=== PATIENT | male | born 1965 | race Caucasian/White ===

== ENCOUNTER 2019-07-01 14:16 | Emergency (ER) | payer OTHER ==
[2019-07-01 14:24] VITALS: TEMP 98.7
[2019-07-01] MEDS ORDERED: IPRATROPIUM 0.5 MG/2.5 ML NEBU INHALATION STA (14:37)
[2019-07-01] MEDS ORDERED: ALBUTEROL NEBULIZED 2.5 MG/3 ML INHALATION STA (14:37)
[2019-07-01] MEDS ORDERED: DEXAMETHASONE SOD PHOSPHATE 10 MG/ML 1 ML VIAL IV STA (14:37)
[2019-07-01 14:51] LABS: Basophils # (A) 0.1 k/uL (0-0.2); Basophils % (A) 0 %; Eosinophils # (A) 0.2 k/uL (0-0.7); Eosinophils % (A) 1 %; HCT 45.5 % (39.0-53.0); HGB 15.6 gm/dL (13.0-17.5); Lymphocytes # (A) 1.2 k/uL (1.0-4.8); Lymphocytes % (A) 7 %; MCH 33.2 pg (25.0-35.0); MCHC 34.4 g/dL (31.0-37.0); MCV 96.5 fL (80.0-100.0); Mean Platelet Volume 6.5; Monocytes # (A) 0.7 k/uL (0-1.0); Monocytes % (A) 4 %; Neutrophils # (A) 14.9 k/uL (1.3-7.7); Neutrophils % (A) 87 %; Platelet Count 221 k/uL (150-450); RBC 4.71 m/uL (4.30-5.90); RDW 14.1 % (11.5-15.5); WBC 17.2 k/uL (3.8-10.6)
[2019-07-01 14:52] LABS: African American GFR (CKD) >90 (>60 ml/min/1.73 sqM); Anion Gap 10 mmol/L; Blood Urea Nitrogen 10 mg/dL (9-20); Calcium 9.1 mg/dL (8.4-10.2); Carbon Dioxide 24 mmol/L (22-30); Chloride 103 mmol/L (98-107); Glucose 113 mg/dL (74-99); Potassium 3.7 mmol/L (3.5-5.1); Sodium 137 mmol/L (137-145)
--- NOTE | 2019-07-01 15:08 | XR ---
EXAMINATION TYPE: XR chest 1V portable DATE OF EXAM: 07/01/2019 COMPARISON: 12/31/2011 HISTORY: Dyspnea and shortness of breath TECHNIQUE: Single frontal view of the chest is obtained. FINDINGS: There is no focal air space opacity, pleural effusion, or pneumothorax seen. Pulmonary hyp erinflation and flattening the diaphragms is seen indicative of underlying COPD. There is new central peribronchial cuffing. The cardiac silhouette size is within normal limits. The osseous structures are intact. IMPRESSION: New central peribronchial cuffing may relate to reactive or infectious airway disease in this patient with underlying COPD. Consider bronchitis. No new focal consolidation to suggest pneumo lius.
--- NOTE | 2019-07-01 15:16 | ED ---
General Adult HPI - General Chief complaint: Shortness of Breath Stated complaint: Sob Time Seen by Provider: 07/01/19 14:30 Source: patient Mode of arrival: ambulatory Limitations: no limitations - History of Present Illness Initial comments: Dictation was produced using [employer] dictation software. please excuse any grammatical, word or spelling errors. Chief Complaint: 54-year-old male with past medical history of COPD presents with shortness of breath since yesterday. History of Present Illness: 54-year-old male past medical history of COPD. Presents today with shortness of breath. Patient states that he's been having URI symptoms for the last 2-3 days. Since last night he's been having worsening shortness of breath. Patient has history of COPD he feels like his COPD is acting up. Denies any lower extremity pain. No lower extremity swelling. No chest pain. Patient denies any constitutional symptoms. The ROS documented in this emergency department record has been reviewed and confirmed by me. Those systems with pertinent positive or negative responses have been documented in the HPI. All other systems are other negative and/or noncontributory. PHYSICAL EXAM: General Impression: Alert and oriented x3, not in acute distress HEENT: Normocephalic atraumatic, extra-ocular movements intact, pupils equal and reactive to light bilaterally, mucous membranes moist. Cardiovascular: Heart regular rate and rhythm, S1&S2 audible, no murmurs, rubs or gallops Chest: diminished lung sounds bilaterally. Abdomen: Bowel sounds present, abdomen soft, non-tender, non-distended, no organomegaly Musculoskeletal: Pulses present and equal in all extremities, no peripheral edema Motor: no focal deficits noted Neurological: CN II-XII grossly intact, no focal motor or sensory deficits noted Skin: Intact with no visualized rashes Psych: Normal affect and mood ED course: 54-year-old male presents with shortness of breath. Arrived shows tachypnea of 28, worse vital signs within acceptable limits. He is mildly hypoxic at 93 on room air. Patient does not rule out home oxygen at home. Chest x-ray obtained showing no focal findings however there is no central bronchial cuffing.Return evaluation obtained. Leukocytosis of 17.2, metabolic panel unremarkable. She reevaluated after breathing treatment and steroid demonstration with improvement of symptoms. Patient feels well to go home. Patient given refill on Symbicort and Ventolin inhaler. Patient must follow up with his primary care physician upon discharge. Patient understandable agreeable to plan. Return parameters discussed. Presentation consistent with COPD exacerbation. She will prescription of antibiotics however strongly felt that patient's symptoms are from a viral cause supposed to bacterial cause. EKG interpretation: Ventricular rate 86, normal sinus rhythm,. Interval 1:30, care is 92, QTC 418. Overall, this EKG is unremarkable - Related Data Home Medications Medication Instructions Recorded Confirmed Albuterol Sulfate [Ventolin HFA] 1 - 2 puff INHALATION RT-Q6H PRN 07/01/19 07/01/19 Fluticasone/Salmeterol 1 puff INHALATION RT-BID 07/01/19 07/01/19 [Fluticasone-Salmeterol 113-14] Previous Rx's Medication Instructions Recorded Albuterol Inhaler [Ventolin Hfa 1 - 2 puff INHALATION RT-Q6H PRN 07/01/19 Inhaler] #1 inhaler Azithromycin [Zithromax Z-pack] 0 mg PO DIRECTED #6 tab 07/01/19 Budesonide-Formot 160-4.5 Mcg 2 puff INHALATION BID #1 inhaler 07/01/19 [Symbicort 160-4.5 Mcg Inhaler] Allergies Allergy/AdvReac Type Severity Reaction Status Date / Time No Known Allergies Allergy Verified 07/01/19 15:16 Review of Systems ROS Statement: Those systems with pertinent positive or pertinent negative responses have been documented in the HPI. ROS Other: All systems not noted in ROS Statement are negative. Past Medical History Past Medical History: COPD History of Any Multi-Drug Resistant Organisms: None Reported Past Surgical History: Orthopedic Surgery Past Psychological History: No Psychological Hx Reported Smoking Status: Current every day smoker Past Alcohol Use History: None Reported General Exam Limitations: no limitations Course Vital Signs 07/01/19 07/01/19 07/01/19 14:21 15:02 15:11 Temperature 98.7 F Pulse Rate 92 84 90 Respiratory 28 H Rate Blood Pressure 132/92 O2 Sat by Pulse 93 L Oximetry 07/01/19 07/01/19 15:12 15:32 Temperature Pulse Rate 90 82 Respiratory Rate Blood Pressure O2 Sat by Pulse Oximetry Medical Decision Making - Lab Data Result diagrams: 07/01/19 14:25 07/01/19 14:25 Lab Results 07/01/19 07/01/19 07/01/19 Range/Units 14:25 14:25 14:25 WBC 17.2 H (3.8-10.6) k/uL RBC 4.71 (4.30-5.90) m/uL Hgb 15.6 (13.0-17.5) gm/dL Hct 45.5 (39.0-53.0) % MCV 96.5 (80.0-100.0) fL MCH 33.2 (25.0-35.0) pg MCHC 34.4 (31.0-37.0) g/dL RDW 14.1 (11.5-15.5) % Plt Count 221 (150-450) k/uL Neutrophils % 87 % Lymphocytes % 7 % Monocytes % 4 % Eosinophils % 1 % Basophils % 0 % Neutrophils # 14.9 H (1.3-7.7) k/uL Lymphocytes # 1.2 (1.0-4.8) k/uL Monocytes # 0.7 (0-1.0) k/uL Eosinophils # 0.2 (0-0.7) k/uL Basophils # 0.1 (0-0.2) k/uL Sodium 137 (137-145) mmol/L Potassium 3.7 (3.5-5.1) mmol/L Chloride 103 (98-107) mmol/L Carbon Dioxide 24 (22-30) mmol/L Anion Gap 10 mmol/L BUN 10 (9-20) mg/dL Creatinine 0.69 (0.66-1.25) mg/dL Est GFR (CKD-EPI)AfAm >90 (>60 ml/min/1.73 sqM) Est GFR (CKD-EPI)NonAf >90 (>60 ml/min/1.73 sqM) Glucose 113 H (74-99) mg/dL Calcium 9.1 (8.4-10.2) mg/dL NT-Pro-B Natriuret Pep 151 pg/mL Disposition Clinical Impression: COPD exacerbation Disposition: HOME SELF-CARE Condition: Good Instructions (If sedation given, give patient instructions): COPD (Chronic Obstructive Pulmonary Disease) (ED) Prescriptions: Budesonide-Formot 160-4.5 Mcg [Symbicort 160-4.5 Mcg Inhaler] 2 puff INHALATION BID #1 inhaler Albuterol Inhaler [Ventolin Hfa Inhaler] 1 - 2 puff INHALATION RT-Q6H PRN #1 inhaler PRN Reason: Dyspnea Azithromycin [Zithromax Z-pack] 0 mg PO DIRECTED #6 tab Is patient prescribed a controlled substance at d/c from ED?: No Referrals: Jose Oates MD [Primary Care Provider] - 1-2 days Time of Disposition: 15:52
[2019-07-01] MEDS ORDERED: AZITHROMYCIN 500 MG TAB PO STA (15:52)
[2019-07-01 16:25] VITALS: RESP 18
[2019-07-01 17:01] VITALS: BP 122/70; PULSE 84
== END 2019-07-01 17:00 | disposition home or self-care (01) ==
LOC: EC 14:16
DX: J44.1 Chronic obstructive pulmonary disease with (acute) exacerbation (principal); D72.829 Elevated white blood cell count, unspecified; F17.200 Nicotine dependence, unspecified, uncomplicated; Z79.51 Long term (current) use of inhaled steroids
CPT/HCPCS: 36415; 94640 ×2; 93005; 83880; 80048; 85025; 71045; 99285; 96374; J1100

== ENCOUNTER 2019-07-16 18:55 | Inpatient (IN) | payer OTHER ==
[2019-07-16] MEDS ORDERED: methylPREDNISolone SOD SUCCI 125 MG/2 ML VIAL IV STA (19:06)
[2019-07-16] MEDS ORDERED: IPRATROPIUM-ALBUTEROL 3 ML NEB INHALATION STA (19:06)
[2019-07-16] MEDS ORDERED: KETOROLAC 30 MG/ML 1 ML VIAL IVP STA (19:06)
[2019-07-16] MEDS ORDERED: SODIUM CHLORIDE 0.9% 1,000 ML IV STA (19:06)
--- NOTE | 2019-07-16 19:07 | ED ---
Chest Pain HPI - General Chief Complaint: Chest Pain Stated Complaint: Chest pain Time Seen by Provider: 07/16/19 19:05 Source: EMS, RN notes reviewed, old records reviewed Mode of arrival: EMS Limitations: no limitations - History of Present Illness Initial Comments: This is a 54-year-old male the ER for evaluation of chest pain left-sided chest pain for a day and a half. Chest pains worse with a deep breath worse with exertion. Worse with palpation no fevers increased history of COPD. Patient here about 2 months to stay for similar croupy type exacerbation. Denies recent travel history sick contacts, patient drives a bus for a living, no fevers or chills, Patient continues to smoke MD Complaint: chest pain -: days(s) Onset: during exertion Pain Location: substernal Consistency: intermittent Improves With: nitroglycerin Worsens With: nothing Treatments Prior to Arrival: none - Related Data Home Medications Medication Instructions Recorded Confirmed Albuterol Sulfate [Ventolin HFA] 1 - 2 puff INHALATION RT-Q6H PRN 07/01/19 07/16/19 Fluticasone Propion/Salmeterol 1 puff INHALATION RT-BID 07/16/19 07/16/19 [Wixela 250-50 Inhub] Allergies Allergy/AdvReac Type Severity Reaction Status Date / Time No Known Allergies Allergy Verified 07/16/19 20:18 Review of Systems ROS Statement: Those systems with pertinent positive or pertinent negative responses have been documented in the HPI. ROS Other: All systems not noted in ROS Statement are negative. EKG Findings - EKG Comments: EKG Findings:: EKG shows sinus rhythm rate of 88, NC 140, QRS 86, QTc 411 Past Medical History Past Medical History: COPD History of Any Multi-Drug Resistant Organisms: None Reported Past Surgical History: Orthopedic Surgery Past Psychological History: No Psychological Hx Reported Smoking Status: Current every day smoker Past Alcohol Use History: None Reported General Exam Limitations: no limitations General appearance: alert, in no apparent distress Head exam: Present: atraumatic, normocephalic, normal inspection Eye exam: Present: normal appearance, PERRL, EOMI. Absent: scleral icterus, conjunctival injection, periorbital swelling ENT exam: Present: normal exam, mucous membranes moist Neck exam: Present: normal inspection. Absent: tenderness, meningismus, lymphadenopathy Respiratory exam: Present: normal lung sounds bilaterally. Absent: respiratory distress, wheezes, rales, rhonchi, stridor Cardiovascular Exam: Present: regular rate, normal rhythm, normal heart sounds. Absent: systolic murmur, diastolic murmur, rubs, gallop, clicks GI/Abdominal exam: Present: soft, normal bowel sounds. Absent: distended, tenderness, guarding, rebound, rigid Extremities exam: Present: normal inspection, full ROM, normal capillary refill. Absent: tenderness, pedal edema, joint swelling, calf tenderness Back exam: Present: normal inspection Neurological exam: Present: alert, oriented X3, CN II-XII intact Psychiatric exam: Present: normal affect, normal mood Skin exam: Present: warm, dry, intact, normal color. Absent: rash Course Vital Signs 07/16/19 07/16/19 07/16/19 18:57 19:10 19:25 Temperature 97.9 F Pulse Rate 95 94 85 Respiratory 16 17 20 Rate Blood Pressure 99/71 103/72 O2 Sat by Pulse 94 L 94 L Oximetry 07/16/19 07/16/19 07/16/19 19:41 19:56 21:30 Temperature 98.6 F Pulse Rate 79 85 78 Respiratory 18 20 18 Rate Blood Pressure 99/70 113/77 O2 Sat by Pulse 94 L 94 L Oximetry - Reevaluation(s) Reevaluation #1: 07/16/19 21:39 Medical records reviewed Reevaluation #2: 07/16/19 21:39 Not currently feeling comfortable with discharge secondary to shortness of breath and the pain that he has rating to deep breath - Consultations Consultation #1: Spoke with mai Johnson for admission Chest Pain MDM - MDM 54 male the ER for evaluation patient resents today for evaluation regarding shortness of breath with chest pain. Patient has positive pneumonia left upper and left lower lobe. We'll admit for IV antibiotics and continued evaluation. Disposition Clinical Impression: COPD exacerbation, Community acquired bacterial pneumonia Disposition: ADMITTED IP TO THIS HOSP Condition: Fair Is patient prescribed a controlled substance at d/c from ED?: No Referrals: Jose Oates MD [Primary Care Provider] - 1-2 days
[2019-07-16 19:20] LABS: Basophils # (A) 0.1 k/uL (0-0.2); Basophils % (A) 1 %; Eosinophils # (A) 0.3 k/uL (0-0.7); Eosinophils % (A) 2 %; HCT 46.8 % (39.0-53.0); HGB 15.5 gm/dL (13.0-17.5); Lymphocytes # (A) 2.4 k/uL (1.0-4.8); Lymphocytes % (A) 15 %; MCH 31.9 pg (25.0-35.0); MCV 96.7 fL (80.0-100.0); Mean Platelet Volume 7.1; Monocytes # (A) 0.7 k/uL (0-1.0); Monocytes % (A) 4 %; Neutrophils # (A) 11.8 k/uL (1.3-7.7); Neutrophils % (A) 76 %; Platelet Count 320 k/uL (150-450); RBC 4.84 m/uL (4.30-5.90); RDW 13.7 % (11.5-15.5); WBC 15.6 k/uL (3.8-10.6)
[2019-07-16 19:30] LABS: ALT 33 U/L (21-72); AST 27 U/L (17-59); African American GFR (CKD) >90 (>60 ml/min/1.73 sqM); Albumin 4.4 g/dL (3.5-5.0); Alkaline Phosphatase 98 U/L (38-126); Anion Gap 10 mmol/L; Blood Urea Nitrogen 11 mg/dL (9-20); Calcium 9.7 mg/dL (8.4-10.2); Carbon Dioxide 24 mmol/L (22-30); Chloride 103 mmol/L (98-107); Glucose 95 mg/dL (74-99); Potassium 4.2 mmol/L (3.5-5.1); Sodium 137 mmol/L (137-145); Total Bilirubin 0.7 mg/dL (0.2-1.3); Total Protein 7.9 g/dL (6.3-8.2)
[2019-07-16 19:33] LABS: INR 0.9 (<1.2); Prothrombin Time 9.8 sec (9.0-12.0)
--- NOTE | 2019-07-16 19:43 | XR ---
EXAMINATION TYPE: XR chest 2V DATE OF EXAM: 07/16/2019 COMPARISON: 07/01/2019 HISTORY: Chest pain TECHNIQUE: Frontal and lateral views of the chest are obtained. FINDINGS: There is some coarse infiltrate in the left upper lobe. Right lung is fairly clear. Heart size is normal. There is no heart failure. There is pulmonary hyperinflation with flattening of the d iaphragm. There are chest leads. IMPRESSION: There is a patchy left upper lobe pneumonia that appears new compared to old exam. COPD unchanged. There is persistent mild infiltrate left lower lobe unchanged.
[2019-07-16] MEDS ORDERED: MORPHINE SULFATE 4 MG/ML SYRINGE IVP STA (19:53)
[2019-07-16] MEDS ORDERED: AZITHROMYCIN 500 MG in SODIUM CHLORIDE 0.9% 250 ML IVPB STA (19:53)
[2019-07-16] MEDS ORDERED: MORPHINE SULFATE 4 MG/ML SYRINGE IVP PRN (19:53)
--- NOTE | 2019-07-16 20:51 | CT ---
EXAMINATION TYPE: CT angio chest DATE OF EXAM: 07/16/2019 8:29 PM COMPARISON: None HISTORY: Left sided chest pain. CT DLP: 385.9 mGycm Automated exposure control for dose reduction was used. CONTRAST: CTA scan of the thorax is performed with IV Contrast, patient injected with 100 mL of Isovue 370, pul monary embolism protocol. . There are 3-D post processed images. FINDINGS: There is diffuse pulmonary emphysema. There is some mild scarring and subsegmental atelectasis at the left lung base. There is a patchy reticular infiltrate in the posterior segment left upper lobe. There is no mediastinal adenopathy. There are no hilar masses. Thoracic aorta shows no aneurysm or di ssection. The ascending aorta measures 3.5 cm. There are no filling defects in the pulmonary arteries . Heart size is normal. There is no pericardial effusion. The bony thorax appears intact. The ribs ap pear intact. IMPRESSION: NO EVIDENCE OF PULMONARY EMBOLISM. THERE IS A MILD LEFT UPPER LOBE PNEUMONIA. EMPHYSEMA. MINIMAL INFI LTRATES AND ATELECTASIS AT THE LUNG BASES.
[2019-07-16] MEDS ORDERED: PNEUMONIA PROTOCOL UTILIZED 1 EACH MISC PO PRN (21:36)
[2019-07-16] MEDS ORDERED: ALBUTEROL NEBULIZED 2.5 MG/3 ML INHALATION PRN (21:36)
[2019-07-17] MEDS: SODIUM CHLORIDE 0.9% 1,000 ML IV SCH ×3 (00:40→17:18)
--- NOTE | 2019-07-17 06:53 | XR ---
EXAMINATION TYPE: XR chest 2V DATE OF EXAM: 07/17/2019 HISTORY: pneumonia. REFERENCE: Previous study dated 07/16/2019. FINDINGS: Lungs are overinflated. The heart is not enlarged. There are diffuse increased markings. Le ft lower lobe infiltrate is partially cleared. There is blunting of both CP angles by believe this is secondary to overinflation. IMPRESSION: 1. COPD. 2. IMPROVED AERATION, LEFT LUNG BASE.
[2019-07-17] MEDS: IPRATROPIUM-ALBUTEROL 3 ML NEB INHALATION SCH ×4 (08:24→20:30)
[2019-07-17] MEDS ORDERED: NICOTINE POLACRILEX 2 MG GUM BUCCAL PRN (16:29)
--- NOTE | 2019-07-17 16:38 | P.HPIM ---
History of Present Illness H&P Date: 07/17/19 Chief Complaint: Chest pressure History of presenting complaint: This is a pleasant [address] Oates. Patient long-standing smoker. Patient presents with 2 days of increasing pressure pain across the chest. Some shortness of breath some wheezing. No dizziness no lightheadedness no perspiration. No fever no chills. Patient got a cough with clear white sputum. Patient was ruled out for pulmonary embolism. Pain was worse with body movements better at rest. Did not radiate to the neck around. Admitted for the same. Checks x-ray was suggestive of infiltrates/pneumonia. Review of systems: GEN.: Tired EYES: None HEENT: None NECK: None RESPIRATORY: As above CARDIOVASCULAR: As above GASTROINTESTINAL: None GENITOURINARY: None MUSCULOSKELETAL: None LYMPHATICS: None HEMATOLOGICAL: None PSYCHIATRY: Anxious NEUROLOGICAL: None Past medical history to include: COPD Social history: Smoked anywhere up to 2 packs a day now down to half a pack a day for last 40 years. 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 Family history: Osteoarthritis Physical examination: VITAL SIGNS: 97.9, 95, 16, 99/71, 94% room air GENERAL: BMI 25.1, sitting upon a distress. EYES: Pupils equal. Conjunctiva normal. HEENT: External appearance of nose and ears normal, oral cavity grossly normal. NECK: JVD not raised; masses not palpable. HEART: First and second heart sounds are normal; no edema. LUNGS: Respiratory rate increased, decreased breath sounds prolonged expiration some wheezing. ABDOMEN: Soft, nontender, liver spleen not palpable, no masses palpable. PSYCH: Alert and oriented x3; mood and affect anxiousl. NEUROLOGICAL: Cranial nerves grossly intact; no facial asymmetry, power and sensation grossly intact. LYMPHATICS: No lymph nodes palpable in the axilla and neck INVESTIGATIONS, reviewed in the clinical context: White count 15.6 hemoglobin 15.5 platelets 320 potassium 4.2 creatinine 0.71 ProBNP 68 Chest x-ray film personally reviewed by me-hyperinflated possible infiltrate EKG tracing personally reviewed by me-normal sinus rhythm Chest CTA-negative for PE, emphysema, upper lobe infiltrate Assessment: -Left upper lobe pneumonia -Acute exacerbation of emphysema and a current smoker -Chronic nicotine dependence patient's cigarette smoker Plan: Patient is on IV ceftriaxone. Zithromax. Bronchodilators every 6 hours. IV and inhaled steroids are added. Smoke cessation counseling: This was done with the patient. Nicotine patch is being given. More than 3 minutes was spent for this Past Medical History Past Medical History: COPD History of Any Multi-Drug Resistant Organisms: None Reported Past Surgical History: Appendectomy, Orthopedic Surgery Past Anesthesia/Blood Transfusion Reactions: No Reported Reaction Past Psychological History: No Psychological Hx Reported Smoking Status: Current every day smoker Past Alcohol Use History: None Reported - Past Family History Mother Family Medical History: Osteoarthritis (OA) Father Family Medical History: Cancer Medications and Allergies Home Medications Medication Instructions Recorded Confirmed Type Albuterol Sulfate [Ventolin HFA] 1 - 2 puff INHALATION RT-Q6H PRN 07/01/19 07/16/19 History Fluticasone Propion/Salmeterol 1 puff INHALATION RT-BID 07/16/19 07/16/19 History [Wixela 250-50 Inhub] Allergies Allergy/AdvReac Type Severity Reaction Status Date / Time No Known Allergies Allergy Verified 07/16/19 20:18 Physical Exam Vitals: Vital Signs Temp Pulse Pulse Resp BP BP Pulse Ox 07/17/19 08:39 72 07/17/19 08:24 72 07/17/19 07:00 97.6 F 68 18 113/70 94 L 07/17/19 01:17 EDT 98.6 F 69 16 100/61 97 07/16/19 22:44 97.8 F 76 18 111/71 95 07/16/19 21:30 98.6 F 78 18 113/77 94 L 07/16/19 19:56 85 20 99/70 94 L 07/16/19 19:41 79 18 07/16/19 19:25 85 20 07/16/19 19:10 94 17 103/72 94 L 07/16/19 18:57 97.9 F 95 16 99/71 94 L Intake and Output 07/16/19 07/17/19 07/17/19 23:59 06:59 14:59 Intake Total 354 Balance 354 Intake: Intake, IV Titration Amount Sodium Chloride 0.9% 1, 000 ml @ 100 mls/hr IV . Q10H MAKENZIE Rx#:[id number] Oral 354 Other: Voiding Method # Voids Weight Results CBC & Chem 7: 07/16/19 19:05 07/16/19 19:05 Labs: Abnormal Lab Results - Last 24 Hours (Table) 07/16/19 Range/Units 19:05 WBC 15.6 H (3.8-10.6) k/uL Neutrophils # 11.8 H (1.3-7.7) k/uL Thrombosis Risk Factor Assmnt - Choose All That Apply Any of the Below Risk Factors Present?: Yes Each Factor Represents 1 point: Abnormal pulmonary function (COPD), Age 41-60 years, Obesity (BMI >25) Thrombosis Risk Factor Assessment Total Risk Factor Score: 3 Thrombosis Risk Factor Assessment Level: Moderate Risk
[2019-07-17] MEDS: ENOXAPARIN 40 MG/0.4 ML SYRINGE SQ SCH (17:13)
[2019-07-17] MEDS: methylPREDNISolone SOD SUCCI 40 MG/ML 1 ML VIAL IV SCH ×2 (17:13→22:53)
[2019-07-17] MEDS: NICOTINE 21MG/24HR PATCH TRANSDERM SCH (17:13)
[2019-07-17] MEDS: BUDESONIDE 1 MG/2 ML NEBU INHALATION SCH (20:30)
[2019-07-17] MEDS ORDERED: AZITHROMYCIN 500 MG in SODIUM CHLORIDE 0.9% 250 ML IVPB SCH (22:00)
[2019-07-18] MEDS: SODIUM CHLORIDE 0.9% 1,000 ML IV SCH ×2 (05:35→17:06)
[2019-07-18] MEDS: methylPREDNISolone SOD SUCCI 40 MG/ML 1 ML VIAL IV SCH ×2 (07:04→17:04)
[2019-07-18] MEDS: NICOTINE 21MG/24HR PATCH TRANSDERM SCH (07:05)
[2019-07-18] MEDS: ENOXAPARIN 40 MG/0.4 ML SYRINGE SQ SCH (07:06)
[2019-07-18] MEDS: IPRATROPIUM-ALBUTEROL 3 ML NEB INHALATION SCH ×4 (08:30→20:31)
[2019-07-18] MEDS: BUDESONIDE 1 MG/2 ML NEBU INHALATION SCH ×2 (08:30→20:31)
--- NOTE | 2019-07-18 13:14 | P.CRDCN ---
History of Present Illness History of present illness: This is a pleasant 54-year-old male past medical history significant for COPD and chronic nicotine dependence. He is currently admitted into the hospital being treated for pneumonia. We have been asked to see him in consultation secondary to tachycardia. Telemetry tracings and vital signs documentation reviewed. He is maintaining normal sinus mechanism with no evidence for tachyarrhythmia. Blood pressure 115/73. He is seen and examined sitting up undergoing updraft treatment. He states initially his presentation to the hospital secondary to pleuritic chest discomfort and cough. He states he had been coughing and having a tightness in his chest every time he took in a deep breath or coughed for the previous 2-3 days. Chest x-ray revealed evidence of COPD, blunting of costophrenic angles secondary to overinflation and patchy left upper lobe pneumonia. Repeat chest x-ray today revealed improvement of the left lung. CT chest negative for pulmonary embolism with a mild left upper lobe pneumonia, COPD and minimal infiltrates and atelectasis at the lung bases bilaterally. EKG on arrival reveals sinus mechanism heart rate of 88, left axis deviation, intraventricular conduction delay and inferior Q-wave. Laboratory data reviewed, WBC 15.6, hemoglobin 15.5, platelets 320, sodium 137, potassium 4.2, creatinine 0.71, cardiac enzymes negative 2, proBNP 68 and magnesium 2.0. The patient states he suffered a heart attack 30 years ago, exact details aren't available. He states he did not have any stents placed. He does not follow regularly with a lobby porter. At the time of my exam: CONSTITUTIONAL: Denies fever. Denies chills. EYES: Denies blurred vision. Denies vision changes. Denies eye pain. EARS, NOSE, MOUTH & THROAT: Denies headache. Denies sore throat. Denies ear pain. CARDIOVASCULAR: Denies chest pain. Denies shortness of breath. Denies orthopnea. Denies PND. Denies palpitations. RESPIRATORY: Denies cough. GASTROINTESTINAL: Denies abdominal pain. Denies diarrhea. Denies constipation. Denies nausea. Denies vomiting. MUSCULOSKELETAL: Denies myalgias. INTEGUMENTARY: Denies pruitis. Denies rash. NEUROLOGIC: Denies numbness. Denies tingling. Denies weakness. PSYCHIATRIC: Denies anxiety. Denies depression. ENDOCRINE: Denies fatigue. Denies weight change. Denies polydipsia. Denies polyurina. GENITOURINARY: Denies burning, hematuria or urgency with micturation. HEMATOLOGIC: Denies history of anemia. Denies bleeding. GENERAL: This is a 54-year-old male in no apparent distress at the time of my examination. HEENT: Head is atraumatic, normocephalic. Pupils are equal, round. Sclerae anicteric. Conjunctivae are clear. Mucous membranes of the mouth are moist. Neck is supple. There is no jugular venous distention. No carotid bruit is heard. LUNGS: Clear to auscultation no wheezes, rales or rhonchi. No chest wall tenderness is noted on palpation or with deep breathing. HEART: Regular rate and rhythm without murmurs, rubs or gallops. S1 and S2 heard. ABDOMEN: Soft, nontender. Bowel sounds are heard. No organomegaly noted. EXTREMITIES: No evidence of peripheral edema and no calf tenderness noted. VASCULAR: Radial and dorsalis pedis pulses palpated, no evidence of clubbing. NEUROLOGIC: Patient is awake, alert and oriented x3. ASSESSMENT Pneumonia, maintained on rocephin Leukocytosis Chest pain, pleuritic. PE excluded. An acute coronary event has been ruled out. Acute exacerbation of chronic COPD, maintained on steroids and updraft treatments Chronic nicotine dependence PLAN No evidence of tachy-arrhythmia on telemetry or vital sign documentation. Chest pain is pleuritic in nature and likely related to underlying respiratory illness. Echocardiogram has been obtained and will be reviewed. Ongoing medical management, no further cardiac work-up required. Smoking cessation recommended. Thank you kindly for this consultation. Nurse Practitioner note has been reviewed, I agree with a documented findings and plan of care. Patient was seen and examined. Past Medical History Past Medical History: COPD History of Any Multi-Drug Resistant Organisms: None Reported Past Surgical History: Appendectomy, Orthopedic Surgery Past Anesthesia/Blood Transfusion Reactions: No Reported Reaction Past Psychological History: No Psychological Hx Reported Smoking Status: Current every day smoker Past Alcohol Use History: None Reported - Past Family History Mother Family Medical History: Osteoarthritis (OA) Father Family Medical History: Cancer Medications and Allergies Home Medications Medication Instructions Recorded Confirmed Type Albuterol Sulfate [Ventolin HFA] 1 - 2 puff INHALATION RT-Q6H PRN 07/01/19 07/16/19 History Fluticasone Propion/Salmeterol 1 puff INHALATION RT-BID 07/16/19 07/16/19 History [Wixela 250-50 Inhub] Allergies Allergy/AdvReac Type Severity Reaction Status Date / Time No Known Allergies Allergy Verified 07/16/19 20:18 Physical Exam Vitals: Vital Signs Temp Pulse Pulse Resp BP Pulse Ox 07/18/19 08:45 80 07/18/19 08:31 80 07/18/19 07:00 98.3 F 84 16 115/73 94 L 07/18/19 01:36 97.7 F 78 18 105/56 97 07/17/19 21:31 95 07/17/19 20:50 80 07/17/19 20:31 75 90 L 07/17/19 19:01 98.7 F 78 18 114/69 07/17/19 16:00 72 07/17/19 15:47 76 07/17/19 15:00 97.2 F L 73 18 103/58 94 L 07/17/19 11:45 76 07/17/19 11:34 72 Intake and Output 07/17/19 07/18/19 07/18/19 22:59 06:59 14:59 Intake Total 786 296 Balance 786 296 Intake: IV 250 Sodium Chloride 0.9% 1, 250 000 ml @ 100 mls/hr IV . Q10H [facility] Rx#:[id number] Intake, IV Titration 300 Amount Azithromycin 500 mg In 250 Sodium Chloride 0.9% 250 ml @ 250 mls/hr IVPB DAILY@2200 [facility] Rx#: [id number] cefTRIAXone 1 gm In 50 Sodium Chloride 0.9% 50 ml @ 100 mls/hr IVPB Q24H [facility] Rx#:[id number] Oral 236 296 Other: Voiding Method Toilet Toilet # Voids 2 Weight 75.6 kg Results 07/16/19 19:05 07/16/19 19:05 Current Medications Generic Name Dose Route Start Last Admin Trade Name Freq PRN Reason Stop Dose Admin Albuterol Sulfate 2.5 mg 07/16/19 21:36 Ventolin Nebulized INHALATION RT-Q4H PRN Shortness Of Breath Or Wheezing Albuterol/Ipratropium 3 ml 07/17/19 08:00 07/18/19 08:30 Duoneb 0.5 Mg-3 Mg/3 Ml Soln INHALATION 3 ml RT-QID MAKENZIE Administration Budesonide 1 mg 07/17/19 20:00 07/18/19 08:30 Pulmicort INHALATION 1 mg RT-BID MAKENZIE Administration Enoxaparin Sodium 40 mg 07/17/19 16:30 07/18/19 07:06 Lovenox SQ 40 mg DAILY MAKENZIE Administration Azithromycin 500 mg/ Sodium 250 mls @ 250 mls/hr 07/17/19 22:00 07/17/19 21:10 Chloride IVPB 250 mls/hr DAILY@2200 MAKENZIE Administration Sodium Chloride 1,000 mls @ 100 mls/hr 07/16/19 21:45 07/18/19 05:35 Saline 0.9% IV Not Given .Q10H MAKENZIE Ceftriaxone Sodium 1 gm/ 50 mls @ 100 mls/hr 07/17/19 21:00 07/17/19 19:56 Sodium Chloride IVPB 100 mls/hr Q24H MAKENZIE Administration Methylprednisolone Sodium Succinate 40 mg 07/17/19 16:30 07/18/19 07:04 Solu-Medrol IV 40 mg Q8HR MAKENZIE Administration Miscellaneous Information 1 each 07/16/19 21:36 Pneumonia Protocol Utilized PO ONCE PRN Per Protocol Morphine Sulfate 4 mg 07/16/19 19:53 Morphine Sulfate (Inj) IVP Q4HR PRN Pain Nicotine 1 patch 07/17/19 16:30 07/18/19 07:05 Habitrol 21mg/24hr Patch TRANSDERM 1 patch DAILY MAKENZIE Administration Nicotine Polacrilex 2 mg 07/17/19 16:29 Nicorette Gum BUCCAL Q4HR PRN Nicotine Cravings Intake and Output 07/17/19 07/18/19 07/18/19 22:59 06:59 14:59 Intake Total 786 296 Balance 786 296 Intake: IV 250 Sodium Chloride 0.9% 1, 250 000 ml @ 100 mls/hr IV . Q10H [facility] Rx#:[id number] Intake, IV Titration 300 Amount Azithromycin 500 mg In 250 Sodium Chloride 0.9% 250 ml @ 250 mls/hr IVPB DAILY@2200 [facility] Rx#: [id number] cefTRIAXone 1 gm In 50 Sodium Chloride 0.9% 50 ml @ 100 mls/hr IVPB Q24H [facility] Rx#:[id number] Oral 236 296 Other: Voiding Method Toilet Toilet # Voids 2 Weight 75.6 kg Patient Weight 07/19/19 06:59 Weight 75.6 kg 07/16/19 19:05 07/16/19 19:05
[2019-07-18 19:59] VITALS: RESP 17
[2019-07-18] MEDS ORDERED: AZITHROMYCIN 500 MG TAB PO SCH (22:00)
--- NOTE | 2019-07-18 22:15 | P.PN ---
Progress Note - Text Progress Note Date: 07/18/19 Chief Complaint: Chest pressure History of presenting complaint: This is a pleasant [address] Oates. Patient long-standing smoker. Patient presents with 2 days of increasing pressure pain across the chest. Some shortness of breath some wheezing. No dizziness no lightheadedness no perspiration. No fever no chills. Patient got a cough with clear white sputum. Patient was ruled out for pulmonary embolism. Pain was worse with body movements better at rest. Did not radiate to the neck around. Admitted for the same. Checks x-ray was suggestive of infiltrates/pneumonia. Admitted with pneumonia and emphysema exacerbation. Today-breathing a bit better. No chest pain. Did tolerate her diet. Feels a bit better. Has been out of bed. Review of systems: Was done for constitutional, cardiovascular, GI, pulmonary. relevant finding as above Active Medications Albuterol Sulfate (Ventolin Nebulized) 2.5 mg INHALATION RT-Q4H PRN PRN Reason: Shortness Of Breath Or Wheezing Albuterol/Ipratropium (Duoneb 0.5 Mg-3 Mg/3 Ml Soln) 3 ml INHALATION RT-QID [facility] Last Admin: 07/18/19 20:31 Dose: 3 ml Documented by: Azithromycin (Zithromax) 500 mg PO Q24H [facility] Last Admin: 07/18/19 20:55 Dose: 500 mg Documented by: Budesonide (Pulmicort) 1 mg INHALATION RT-BID [facility] Last Admin: 07/18/19 20:31 Dose: 1 mg Documented by: Enoxaparin Sodium (Lovenox) 40 mg SQ DAILY [facility] Last Admin: 07/18/19 07:06 Dose: 40 mg Documented by: Sodium Chloride (Saline 0.9%) 1,000 mls @ 100 mls/hr IV .Q10H [facility] Last Admin: 07/18/19 17:06 Dose: 100 mls/hr Documented by: Ceftriaxone Sodium 1 gm/ (Sodium Chloride) 50 mls @ 100 mls/hr IVPB Q24H [facility] Last Admin: 07/18/19 20:55 Dose: 100 mls/hr Documented by: Methylprednisolone Sodium Succinate (Solu-Medrol) 40 mg IV Q8HR [facility] Last Admin: 07/18/19 17:04 Dose: 40 mg Documented by: Miscellaneous Information (Pneumonia Protocol Utilized) 1 each PO ONCE PRN PRN Reason: Per Protocol Morphine Sulfate (Morphine Sulfate (Inj)) 4 mg IVP Q4HR PRN PRN Reason: Pain Nicotine (Habitrol 21mg/24hr Patch) 1 patch TRANSDERM DAILY MAKENZIE Last Admin: 07/18/19 07:05 Dose: 1 patch Documented by: Nicotine Polacrilex (Nicorette Gum) 2 mg BUCCAL Q4HR PRN PRN Reason: Nicotine Cravings Physical examination: VITAL SIGNS: 97.9, 85, 14, 120/73, 95% GENERAL: Sitting up, more comfortable. EYES: Pupils equal. Conjunctiva normal. HEENT: External appearance of nose and ears normal, oral cavity grossly normal. NECK: JVD not raised; masses not palpable. HEART: First and second heart sounds are normal; no edema. LUNGS: Respiratory rate increased, decreased breath sounds prolonged expiration, improved wheezing. ABDOMEN: Soft, nontender, liver spleen not palpable, no masses palpable. PSYCH: Alert and oriented x3; mood and affect anxiousl. INVESTIGATIONS, reviewed in the clinical context: White count 15.6 hemoglobin 15.5 platelets 320 potassium 4.2 creatinine 0.71 ProBNP 68 Chest x-ray film personally reviewed by me-hyperinflated possible infiltrate EKG tracing personally reviewed by me-normal sinus rhythm Chest CTA-negative for PE, emphysema, upper lobe infiltrate Assessment: -Left upper lobe pneumonia, clinically improving -Acute exacerbation of emphysema and a current smoker, improving -Chronic nicotine dependence patient's cigarette smoker Plan: Doing better. Was switched to oral antibiotic tomorrow morning. Cut back on Solu-Medrol. No further workup per cardiology. Care was discussed with the patient.
[2019-07-18] MEDS: predniSONE 20 MG TAB PO SCH (23:29)
[2019-07-19 01:39] VITALS: TEMP 97.8
[2019-07-19] MEDS: NICOTINE 21MG/24HR PATCH TRANSDERM SCH (07:01)
[2019-07-19] MEDS: ENOXAPARIN 40 MG/0.4 ML SYRINGE SQ SCH (07:02)
[2019-07-19] MEDS: predniSONE 20 MG TAB PO SCH (07:02)
[2019-07-19] MEDS: BUDESONIDE 1 MG/2 ML NEBU INHALATION SCH (07:43)
[2019-07-19] MEDS: IPRATROPIUM-ALBUTEROL 3 ML NEB INHALATION SCH ×2 (07:43→11:54)
[2019-07-19 07:59] VITALS: BP 113/67
[2019-07-19] MEDS ORDERED: CEFDINIR 300 MG CAP PO SCH (09:00)
--- NOTE | 2019-07-19 10:41 | ECHOF ---
Referral Reason:Pulmonary hypertension MEASUREMENTS -------- HEIGHT: 177.8 cm WEIGHT: 79.4 kg BP: 105/56 RVIDd: 3.2 cm (< 3.3) IVSd: 1.2 cm (0.6 - 1.1) LVIDd: 4.2 cm (3.9 - 5.3) LVPWd: 1.3 cm (0.6 - 1.1) IVSs: 1.5 cm LVIDs: 2.8 cm LVPWs: 1.6 cm LAESV Index (A-L): 17.15 ml/m Ao Diam: 3.4 cm (2.0 - 3.7) AV Cusp: 2.1 cm (1.5 - 2.6) MV EXCURSION: 11.820 mm (> 18.000) MV EF SLOPE: 102 mm/s (70 - 150) EPSS: 1.1 cm MV E Bogdan: 0.96 m/s MV DecT: 206 ms MV A Bogdan: 1.04 m/s MV E/A Ratio: 0.92 RAP: 20.00 mmHg RVSP: 51.08 mmHg TAPSE: 32.29 mm FINDINGS -------- Sinus rhythm. This was a technically adequate study. The left ventricular size is normal. There is mild concentric left ventricular hypertrophy. Overa ll left ventricular systolic function is normal with, an EF between 55 - 60 %. The diastolic fillin g pattern is normal for the age of the patient 8.81. The right ventricle is normal in size. Normal LA size by volume 22+/-6 ml/m2. RA appears enlarged. Interatrial and interventricular septum intact. The aortic valve is trileaflet and appears structurally normal. There is no evidence of aortic regu rgitation. There is no evidence of aortic stenosis. There is trace mitral regurgitation. Gois-pw-jnrckbkr tricuspid regurgitation present. There is moderate pulmonary hypertension. The r ight ventricular systolic pressure, as measured by Doppler, is 51.08mmHg. Trace/mild (physiologic) pulmonic regurgitation. The aortic root size is normal. The inferior vena cava is dilated with poor inspiratory collapse which is consistent with estimated r ight atrial pressure of 20 mmHg. Echo free space may represent effusion or a pericardial fat pad. CONCLUSIONS -------- 1. Sinus rhythm. 2. This was a technically adequate study. 3. The left ventricular size is normal. 4. There is mild concentric left ventricular hypertrophy. 5. Overall left ventricular systolic function is normal with, an EF between 55 - 60 %. 6. The diastolic filling pattern is normal for the age of the patient 8.81 7. The right ventricle is normal in size. 8. Normal LA size by volume 22+/-6 ml/m2. 9. RA appears enlarged. 10. Interatrial and interventricular septum intact. 11. The aortic valve is trileaflet and appears structurally normal. 12. There is no evidence of aortic regurgitation. 13. There is no evidence of aortic stenosis. 14. There is trace mitral regurgitation. 15. Xucy-bi-gfylcrhq tricuspid regurgitation present. 16. There is moderate pulmonary hypertension. 17. The right ventricular systolic pressure, as measured by Doppler, is 51.08mmHg. 18. Trace/mild (physiologic) pulmonic regurgitation. 19. The aortic root size is normal. 20. The inferior vena cava is dilated with poor inspiratory collapse which is consistent with estimat ed right atrial pressure of 20 mmHg. 21. Echo free space may represent effusion or a pericardial fat pad. MOLDING MACHINE OPERATOR: Pippa Toure RDCS
[2019-07-19 12:07] VITALS: PULSE 74
--- NOTE | 2019-07-19 23:43 | P.DS ---
Providers Date of admission: 07/16/19 21:36 Expected date of discharge: 07/19/19 Attending physician: Dov Cary Consults: 07/17/19 12:26 Consult Physician Routine Consulting Provider: Duke Jarvis Consult Reason/Comments: matt request consult for tachycardia Do you want consulting provider notified?: Already Contacted Primary care physician: Jose Oates [facility] Course: Chief Complaint: Chest pressure History of presenting complaint: This is a pleasant [address] Oates. Patient long-standing smoker. Patient presents with 2 days of increasing pressure pain across the chest. Some shortness of breath some wheezing. No dizziness no lightheadedness no perspiration. No fever no chills. Patient got a cough with clear white sputum. Patient was ruled out for pulmonary embolism. Pain was worse with body movements better at rest. Did not radiate to the neck around. Admitted for the same. Checks x-ray was suggestive of infiltrates/pneumonia. Admitted with pneumonia and emphysema exacerbation. Treated with bronchodilators, steroids, IV ceftriaxone Today-feeling much better. Up and about. Advised against smoking. Seen by cardiology. Okay to be discharged. Consultation: Dr. ANGELO Jarvis Physical examination: VITAL SIGNS: 97.8, 73, 17, 113% is 7, 99% room air GENERAL: Propped up, comfortable. EYES: Pupils equal. Conjunctiva normal. HEENT: External appearance of nose and ears normal, oral cavity grossly normal. NECK: JVD not raised; masses not palpable. HEART: First and second heart sounds are normal; no edema. LUNGS: Respiratory rate normal, decreased breath sounds ABDOMEN: Soft, nontender, liver spleen not palpable, no masses palpable. PSYCH: Alert and oriented x3; mood and affect anxiousl. INVESTIGATIONS, reviewed in the clinical context: White count 15.6 hemoglobin 15.5 platelets 320 potassium 4.2 creatinine 0.71 ProBNP 68 Chest x-ray film personally reviewed by me-hyperinflated possible infiltrate EKG tracing personally reviewed by me-normal sinus rhythm Chest CTA-negative for PE, emphysema, upper lobe infiltrate 2-D echo-EF 55-60%, moderate pulmonary hypertension Assessment: -Left upper lobe pneumonia, clinically improving -Acute exacerbation of emphysema in a current smoker, improved -Secondary probably hypertension secondary to COPD -Chronic nicotine dependence patient's cigarette smoker Disposition: Home Patient Condition at Discharge: Stable Plan - Discharge Summary New Discharge Prescriptions: New Ipratropium Phillips [Atrovent Hfa] 2 puff INHALATION QID #1 inhaler Nicotine 21Mg/24Hr Patch [Habitrol] 1 patch TRANSDERM DAILY #14 patch Nicotine Polacrilex [Nicorette] 2 mg BUCCAL Q4HR PRN #30 gum PRN Reason: Nicotine Cravings Cefdinir [Omnicef] 300 mg PO BID #6 cap predniSONE 10 mg PO DAILY #30 tab Continue Albuterol Sulfate [Ventolin HFA] 1 - 2 puff INHALATION RT-Q6H PRN PRN Reason: Shortness Of Breath Fluticasone Propion/Salmeterol [Wixela 250-50 Inhub] 1 puff INHALATION RT-BID Discharge Medication List Albuterol Sulfate [Ventolin HFA] 1 - 2 puff INHALATION RT-Q6H PRN 07/01/19 [History] Fluticasone Propion/Salmeterol [Wixela 250-50 Inhub] 1 puff INHALATION RT-BID 07/16/19 [History] Cefdinir [Omnicef] 300 mg PO BID #6 cap 07/19/19 [Rx] Ipratropium Phillips [Atrovent Hfa] 2 puff INHALATION QID #1 inhaler 07/19/19 [Rx] Nicotine 21Mg/24Hr Patch [Habitrol] 1 patch TRANSDERM DAILY #14 patch 07/19/19 [Rx] Nicotine Polacrilex [Nicorette] 2 mg BUCCAL Q4HR PRN #30 gum 07/19/19 [Rx] predniSONE 10 mg PO DAILY #30 tab 07/19/19 [Rx] Follow up Appointment(s)/Referral(s): Duke Jarvis MD [STAFF PHYSICIAN] - 10 Days Jose Oates MD [Primary Care Provider] - 07/26/19 11:15 am Patient Instructions/Handouts: COPD (Chronic Obstructive Pulmonary Disease) (DC) Discharge/Stand Alone Forms: Work/School Release / Restrict Discharge Disposition: HOME SELF-CARE
== END 2019-07-19 13:46 | disposition home or self-care (01) | DRG 190 ==
LOC: EC 18:55 → 4SSUR 21:36
PROVIDERS: ADMIT Hospitalist; ATTEND Hospitalist
DX: J43.9 Emphysema, unspecified (principal); J15.9 Unspecified bacterial pneumonia; F17.210 Nicotine dependence, cigarettes, uncomplicated; I10 Essential (primary) hypertension; I25.2 Old myocardial infarction; I45.9 Conduction disorder, unspecified; Z79.52 Long term (current) use of systemic steroids; Z71.6 Tobacco abuse counseling
CPT/HCPCS: 36415; 71046; 71275; 80053; 83690; 83735; 83880; 84484; 85025; 85610; 85730; 87040; 87070; 87205; 93005; 93306; 94640; 94760; 96361; 96365; 96375; 99285

== ENCOUNTER → 2020-03-28 | Outpatient (CLI) | payer OTHER ==
--- NOTE | 2020-03-28 08:53 | US ---
EXAMINATION TYPE: US liver DATE OF EXAM: 03/28/2020 COMPARISON: NONE CLINICAL HISTORY: J43.8 Emphysema, K21.9 GERD. Bloating x 1 year EXAM MEASUREMENTS: Liver Length: 14.2 cm Gallbladder Wall: 0.2 cm CBD: 0.6 cm Right Kidney: 11.3 x 4.6 x 5.4 cm Pancreas: visualized portions wnl, limited by overlying midline bowel gas Liver: wnl Gallbladder: wnl Evidence for sonographic Bangura's sign: no CBD: dilated Right Kidney: wnl IMPRESSION: No distinct abnormality appreciated.
== END | disposition home or self-care (01) ==
LOC: RADUSWWP 07:53
PROVIDERS: ATTEND Internal Medicine Pulmonary Disease
DX: K21.9 Gastro-esophageal reflux disease without esophagitis (principal); J43.8 Other emphysema
CPT/HCPCS: 76705

== ENCOUNTER 2021-06-12 08:19 | Day surgery (SDC) | payer OTHER ==
[~2021-06-12 08:19] MED LIST: LIDOCAINE 1% (10MG/ML) FOR IV START INTRADERMA PRN
[2021-06-12] MEDS: LACTATED RINGERS 1,000 ML IV SCH ×2 (08:37→10:10)
[2021-06-12 08:51] VITALS: TEMP 98.1
[2021-06-12] MEDS ORDERED: PROPOFOL 10 MG/ML 20 ML VIAL IV ONE (09:16)
[2021-06-12] MEDS ORDERED: LIDOCAINE 1% INJ 10MG/ML (20 ML MDV) ONE (09:16)
--- NOTE | 2021-06-12 10:05 | P.PCN ---
Date of Procedure: 06/12/21 Procedure(s) Performed: BRIEF HISTORY: Patient is a 56-year-old pleasant white male scheduled for an elective colonoscopy as a part of screening for colorectal neoplasia. PROCEDURE PERFORMED: Colonoscopy with snare polypectomy and Endo Clip placement. PREOPERATIVE DIAGNOSIS: Screening for colon cancer. IV sedation per Anesthesia. PROCEDURE: After informed consent was obtained, the patient, was brought into the endoscopy unit. IV sedation was administered by Anesthesia under continuous monitoring. Digital rectal examination was normal. Initially the Olympus CF-160 flexible video colonoscope was then inserted in the rectum, gradually advanced into the cecum without any difficulty. Careful examination was performed as the scope was gradually being withdrawn. Ileocecal valve and the appendiceal orifice were visualized and appeared normal. Prep was excellent. Mucosa of the cecum, ascending colon, and appeared normal. In the hepatic flexure there was a 2 cm and 3 cm broad-based polyps removed by piecemeal snare polypectomy and complete polypectomy was accomplished. The proximal transverse colon there was a 1 cm and 2 cm polyps removed by snare polypectomy. In the descending colon there was a 1 segment of flat polyp removed by piecemeal snare polypectomy. In the sigmoid colon there were 3 polyps measuring between 5 mm to 1 cm in size all of which were removed by snare polypectomy. In the mid rectum there were 3 polyps measuring 1.5 cm, too centimeter and 3 cm all of which were removed by piecemeal snare polypectomy and complete polypectomy was accomplished. Following polypectomy 3 Endo Clip slipped placed and upon polypectomy site to prevent post-polypectomy bleed. Retroflexion was performed in the rectum and no lesions were seen. The patient tolerated the procedure well. IMPRESSION: 2 cm and 3 cm hepatic flexure polyps status post piecemeal snare polypectomy and complete polypectomy done 1 cm and 2 cm proximal transverse colon polyp status post polypectomy 1 cm flat descending colon polyp status post polypectomy 5 mm 7 mm and 1 m sigmoid colon polyp status post polypectomy. 3 cm mid rectal broad-based polyp status post polypectomy followed by Endo Clip placement 2 cm broad-based mid rectal polyp status post snare polypectomy followed by Endo Clip placement 1.5 cm broad-based mid rectal polyp status post polypectomy RECOMMENDATIONS: Findings of this examination were discussed with the patient as well as his family.. He was advised to follow with the biopsy result. He'll be seen in office in 2 weeks and based the biopsy results will plan a repeat colonoscopy in 3-6 months
[2021-06-12 10:10] VITALS: RESP 16
[2021-06-12 11:19] VITALS: PULSE 65
[2021-06-12 11:52] VITALS: BP 114/75
[2021-06-12 11:57] LABS: Basophils # (A) 0.1 k/uL (0-0.2); Basophils % (A) 1 %; Eosinophils # (A) 0.1 k/uL (0-0.7); Eosinophils % (A) 1 %; HCT 49.1 % (39.0-53.0); Lymphocytes # (A) 2.5 k/uL (1.0-4.8); Lymphocytes % (A) 23 %; MCH 32.1 pg (25.0-35.0); MCHC 32.7 g/dL (31.0-37.0); MCV 98.2 fL (80.0-100.0); Mean Platelet Volume 8.7; Monocytes # (A) 0.5 k/uL (0-1.0); Monocytes % (A) 5 %; Neutrophils # (A) 7.7 k/uL (1.3-7.7); Neutrophils % (A) 70 %; Platelet Count 300 k/uL (150-450); RDW 13.9 % (11.5-15.5)
== END 2021-06-12 12:06 | disposition home or self-care (01) ==
LOC: ORWHC2ENDO 08:19
PROVIDERS: ATTEND Internal Medicine Gastroenterology
DX: Z12.11 Encounter for screening for malignant neoplasm of colon (principal); D12.3 Benign neoplasm of transverse colon; D12.4 Benign neoplasm of descending colon; D12.5 Benign neoplasm of sigmoid colon; K21.9 Gastro-esophageal reflux disease without esophagitis; F17.210 Nicotine dependence, cigarettes, uncomplicated; Z97.2 Presence of dental prosthetic device (complete) (partial); Z79.899 Other long term (current) drug therapy
CPT/HCPCS: 88305; 85025; 45385; J2001; J2704; 45382

== ENCOUNTER → 2024-01-14 | Outpatient (CLI) | payer MEDICARE, OTHER ==
[2024-01-14 14:28] LABS: HCT 47.6 % (39.6-50.0); MCHC 33.6 g/dL (32.0-37.0); MCV 95.2 FL (80.0-97.0); Mean Platelet Volume 10.5 FL (9.5-12.2); NRBC Per 100 WBC 0 X 10*3/uL (0.00-0.01); Platelet Count 279 X 10*3/uL (140-440); RDW 14.8 % (11.5-14.5); WBC 12.06 X 10*3/uL (4.50-10.00)
[2024-01-14 14:45] LABS: Blood Urea Nitrogen 7.5 mg/dL (9.0-27.0); Chloride 104 mmol/L (96-109); Potassium 4.4 mmol/L (3.5-5.5); Sodium 139 mmol/L (135-145)
== END | disposition home or self-care (01) ==
LOC: LABPAT 11:11
PROVIDERS: ATTEND Internal Medicine Interventional Cardiology
DX: Z01.812 Encounter for preprocedural laboratory examination (principal); R07.9 Chest pain, unspecified
CPT/HCPCS: 36415; 80051; 82565; 84520; 85027

== ENCOUNTER 2024-01-18 05:57 | Day surgery (SDC) | payer MEDICARE, OTHER ==
[2024-01-14 10:52] VITALS: BMI 25.5
[2024-01-18] MEDS ORDERED: ALPRAZolam 0.5 MG TAB PO PRN (06:18)
[2024-01-18] MEDS ORDERED: HEPARIN SODIUM,PORCINE 10,000 UNIT in SODIUM CHLORIDE 0.9% 1,000 ML IRRIGATION PRN (06:18)
[2024-01-18] MEDS ORDERED: ALPRAZolam 0.25 MG TAB PO PRN (06:18)
[2024-01-18] MEDS ORDERED: HEPARIN SODIUM,PORCINE (1 ML) 2,500 UNIT in SODIUM CHLORIDE 0.9% 250 ML IRRIGATION PRN (06:18)
[2024-01-18] MEDS ORDERED: NITROGLYCERIN SL TABS 0.4 MG TAB SUBLINGUAL PRN (06:18)
[2024-01-18] MEDS: ASPIRIN 325 MG TAB PO STA (06:37)
[2024-01-18] MEDS: SODIUM CHLORIDE 0.9% 1,000 ML in EMPTY BAG 1 BAG IV SCH (06:58)
[2024-01-18] MEDS ORDERED: VERAPAMIL 2.5 MG/ML 2 ML AMP ONE (07:11)
[2024-01-18] MEDS ORDERED: LIDOCAINE 1% INJ 10MG/ML (20 ML MDV) ONE (07:11)
[2024-01-18] MEDS: ASPIRIN 81 MG ONE (07:24)
[2024-01-18 07:31] VITALS: RESP 18; TEMP 98.1
[2024-01-18] MEDS: MIDAZOLAM 2 MG/2 ML VIAL IVP ONE (08:03)
[2024-01-18] MEDS ORDERED: fentaNYL (PF) 50 MCG/ML 2 ML AMP ONE (08:06)
[2024-01-18] MEDS: LIDOCAINE 1% INJ 10MG/ML (20 ML MDV) SQ ONE (08:06)
[2024-01-18] MEDS: fentaNYL (PF) 50 MCG/ML 2 ML AMP IVP ONE (08:07)
[2024-01-18] MEDS: VERAPAMIL SYRINGE (5 MG/10 ML) INTRAARTER ONE (08:08)
[2024-01-18] MEDS ORDERED: HEPARIN SODIUM 1,000 UN/ML (10ML VL) ONE (08:08)
[2024-01-18] MEDS: IOPAMIDOL-370 100ML BTL INJ ONE (08:14)
[2024-01-18] MEDS ORDERED: RX INFO: IV CONTRAST WAS GIVEN 1 EACH MISC MISCELLANE PRN (08:18)
--- NOTE | 2024-01-18 08:22 | P.PCN ---
Date of Procedure: 01/18/24 Operative Findings: CARDIAC CATHETERIZATION PERFORMING PHYSICIAN: Fran Hedrick MD, RPVI PROCEDURE PERFORMED: 1. Selective right and left coronary angiogram 2. Left heart catheterization 3. Ultrasound-guided access of the right radial artery INDICATION: Cardiomyopathy COMPLICATION: None APPROACH: Right radial artery LEVEL OF SEDATION: Moderate with a sedation length of 12 minutes PROCEDURE DESCRIPTION: After obtaining an informed consent, the patient was brought to cardiac cytology laboratory manager. Local anesthesia was performed using lidocaine subcutaneously. The right radial artery was cannulated using Seldinger technique, the guidewire passed easily, following that we advanced a 5-Albanian sheath dilator assembly, the wire and dilator were removed and sheath was flushed. Following that, 2 mg of verapamil along with 5000 unit heparin were given. Selective right and left coronary angiogram using a 6-Albanian JR4 and JL 3.5 catheters. Following that we did left heart catheterization using 6-Albanian pigtail catheter. The procedure was completed there was no complication. SELECTIVE CORONARY ANGIOGRAM: The right coronary artery: Large-caliber vessel and dominant vessel. The RCA is angiographically normal and distally bifurcates into PDA and PLV branches both appear to be angiographically and Left main: Is angiographically normal The left circumflex: Large-caliber vessel nondominant vessel. Is normal. Gives rise into the first and second and third obtuse marginal branches and all appears to be angiographically normal The left anterior descending artery: Large-caliber vessel and appears to be angiographically normal and seems to be dual LAD system. HEMODYNAMICS: The LVEDP was 12 to 15 mmHg with no significant gradient across aortic valve CONCLUSION: 1. Normal coronary angiogram 2. Normal left-sided filling pressure POSTPROCEDURE MANAGEMENT: Medical treatment
[2024-01-18] MEDS ORDERED: SODIUM CHLORIDE 0.9% 1,000 ML IV SCH (08:25)
[2024-01-18 12:52] VITALS: BP 100/61; PULSE 56
== END 2024-01-18 12:26 | disposition home or self-care (01) ==
LOC: CATHCVL 05:57
PROVIDERS: ATTEND Internal Medicine Interventional Cardiology
DX: I25.10 Atherosclerotic heart disease of native coronary artery without angina pectoris (principal); I42.9 Cardiomyopathy, unspecified; J44.9 Chronic obstructive pulmonary disease, unspecified; F17.210 Nicotine dependence, cigarettes, uncomplicated; F10.90 Alcohol use, unspecified, uncomplicated; Z79.899 Other long term (current) drug therapy; Z79.51 Long term (current) use of inhaled steroids
CPT/HCPCS: 93458; 76937; J2250; J2001; J3010; J1644; Q9967

== ENCOUNTER 2024-03-05 16:57 | Emergency (ER) | payer MEDICARE, OTHER ==
[2024-03-05 17:17] VITALS: RESP 20
--- NOTE | 2024-03-05 17:33 | ED ---
Back Pain HPI - General Chief Complaint: Back Pain/Injury Stated Complaint: Back pain,LELO Time Seen by Provider: 03/05/24 17:07 Source: patient, RN notes reviewed Limitations: no limitations - History of Present Illness Initial Comments: 58-year-old male presenting to the ED with a chief complaint of back pain. Patient states earlier today was shaving. States when he went to bend down to get water to splash his face immediately started to feel a sharp stabbing pain across his lower back. Patient states he thinks he is having a muscle spasm. Denies urinary symptoms. Denies saddle anesthesia or incontinence. Patient notes a history of emphysema and notes chronic shortness of breath however notes no worse than usual. No fever or chills. No chest pain or shortness of breath. No other complaints at this time. - Related Data Home Medications Medication Instructions Recorded Confirmed Albuterol Sulfate [Ventolin HFA] 1 - 2 puff INHALATION Q4H PRN 07/01/19 01/18/24 Fluticasone/Umeclidin/Vilanter 1 puff INHALATION DAILY 06/10/21 01/18/24 [Trelegy Ellipta 100-62.5-25] Montelukast [Singulair] 10 mg PO DAILY 06/10/21 01/18/24 Famotidine 40 mg PO DAILY 01/14/24 01/18/24 Loratadine [Claritin] 10 mg PO DAILY 01/14/24 01/18/24 Metoprolol Succinate (ER) [Toprol 25 mg PO DAILY 01/14/24 01/18/24 XL] Previous Rx's Medication Instructions Recorded Acetaminophen Tab [Tylenol] 500 mg PO Q6H #60 tablet 03/05/24 Cyclobenzaprine [Flexeril] 10 mg PO TID PRN #15 tab 03/05/24 Ibuprofen [Motrin] 600 mg PO Q8HR PRN #30 tab 03/05/24 Allergies Allergy/AdvReac Type Severity Reaction Status Date / Time No Known Allergies Allergy Verified 01/18/24 06:32 Review of Systems ROS Statement: Those systems with pertinent positive or pertinent negative responses have been documented in the HPI. ROS Other: All systems not noted in ROS Statement are negative. Past Medical History Past Medical History: COPD, GERD/Reflux, Myocardial Infarction ([place]) Additional Past Medical History / Comment(s): SEASONAL ALLERGIES Last Myocardial Infarction Date:: AGE 26 History of Any Multi-Drug Resistant Organisms: None Reported Past Surgical History: Appendectomy Additional Past Surgical History / Comment(s): Colonoscopy Past Anesthesia/Blood Transfusion Reactions: No Reported Reaction Past Psychological History: No Psychological Hx Reported Smoking Status: Current every day smoker Past Alcohol Use History: None Reported Past Drug Use History: Marijuana - Past Family History Mother Family Medical History: Osteoarthritis (OA) Father Family Medical History: Cancer General Exam Limitations: no limitations General appearance: alert, in no apparent distress Eye exam: Present: normal appearance Neck exam: Present: normal inspection Respiratory exam: Present: normal lung sounds bilaterally Cardiovascular Exam: Present: regular rate GI/Abdominal exam: Present: soft, normal bowel sounds. Absent: distended, tenderness, guarding, rebound, rigid Extremities exam: Present: other (Strength and sensation of bilateral lower extremities equal and intact. Ambulates without difficulty. DP/PT pulses intact.) Back exam: Present: other (No midline spinal tenderness to palpation.) Neurological exam: Present: alert, oriented X3 Course Vital Signs 03/05/24 17:12 Temperature 98.4 F Pulse Rate 70 Respiratory 20 Rate Blood Pressure 133/68 O2 Sat by Pulse 94 L Oximetry Medical Decision Making - Medical Decision Making Was pt. sent in by a medical professional or institution (Dr. PA, W[employer] P[employer] PROJECT MANAGER, urgent care, hospital, or correction...) When possible be specific @ -No Did you speak to anyone other than the patient for history (EMS, parent, family, police, friend...)? What history was obtained from this source @ -No Did you review nursing and triage notes (agree or disagree)? Why? @ -I reviewed and agree with nursing and triage notes Were old charts reviewed (outside hosp., previous admission, EMS record, old EKG, old radiological studies, urgent care reports/EKG's, correction records)? Report findings @ -No old charts were reviewed Differential Diagnosis (chest pain, altered mental status, abdominal pain women, abdominal pain men, vaginal bleeding, weakness, fever, dyspnea, syncope, headache, dizziness, GI bleed, back pain, seizure, CVA, palpatations, mental health, musculoskeletal)? @ -Differential Back Pain: Strain, zoster, cauda equina syndrome, epidural abscess, vertebral osteomyelitis, discitis, fracture, subluxation, disc herniation, DJD, spinal stenosis, dissection, AAA, pancreatitis, peptic ulcer disease, pyelonephritis, kidney stone, this is not meant to be an all-inclusive list. EKG interpreted by me (3pts min.). @ -None X-rays interpreted by me (1pt min.). @ -X-ray of the lumbar spine interpreted me which revealed no evidence of acute finding. CT interpreted by me (1pt min.). @ -None done U/S interpreted by me (1pt. min.). @ -None done What testing was considered but not performed or refused? (CT, X-rays, U/S, labs)? Why? @ -None What meds were considered but not given or refused? Why? @ -None Did you discuss the management of the patient with other professionals (professionals i.e. , PA, W[employer] PROJECT MANAGER, lab, RT, psych nurse, geriatric social work professor, sales attendant building materials, teacher, ski patrol officer, foster care case manager)? Give summary @ -No Was smoking cessation discussed for >3mins.? @ -No Was critical care preformed (if so, how long)? @ -No Were there social determinants of health that impacted care today? How? (Homelessness, low income, unemployed, alcoholism, drug addiction, transportation, low edu. Level, literacy, decrease access to med. care, [place] [facility], rehab)? @ -No Was there de-escalation of care discussed even if they declined (Discuss DNR or withdrawal of care, Hospice)? DNR status @ -No What co-morbidities impacted this encounter? (DM, HTN, Smoking, COPD, CAD, Cancer, CVA, ARF, Chemo, Hep., AIDS, mental health diagnosis, sleep apnea, morbid obesity)? @ -None Was patient admitted / discharged? Hospital course, mention meds given and route, prescriptions, significant lab abnormalities, going to OR and other pertinent info. @ -Discharge 58-year-old male presented to the ED with complaints of back pain. Patient states he was shaving and bent down to get water splashed his face when he started to feel sharp stabbing pain across his lower back. Reports that he thinks he is having a muscle spasm. Imaging performed and reviewed which revealed no evidence of acute finding. UA unremarkable. No alarm symptoms at this time. Patient provided analgesia with significant improvement of pain and discharged home in stable condition. Symptoms likely musculoskeletal in nature. Advise close follow-up with his PCP. Discussed return precautions with patient who verbalized agreement. Undiagnosed new problem with uncertain prognosis? @ -No Drug Therapy requiring intensive monitoring for toxicity (Heparin, Nitro, Insulin, Cardizem)? @ -No Were any procedures done? @ -No Diagnosis/symptom? @ -Back Pain Acute, or Chronic, or Acute on Chronic? @ -Acute Uncomplicated (without systemic symptoms) or Complicated (systemic symptoms)? @ -Uncomplicated Side effects of treatment? @ -No Exacerbation, Progression, or Severe Exacerbation? @ -No Poses a threat to life or bodily function? How? (Chest pain, [place], [place], pneumonia, PE, COPD, DKA, ARF, appy, cholecystitis, CVA, Diverticulitis, Homicidal, Suicidal, threat to staff... and all critical care pts) @ -No - Lab Data Lab Results 03/05/24 Range/Units 18:30 Urine Color Light Yellow Urine Appearance Clear (Clear) Urine pH 6.5 (5.0-8.0) Ur Specific [place] 1.012 (1.001-1.035) Urine Protein Negative (Negative) Urine Glucose (UA) Negative (Negative) Urine Ketones Negative (Negative) Urine Blood Negative (Negative) Urine Nitrite Negative (Negative) Urine Bilirubin Negative (Negative) Urine Urobilinogen <2.0 (<2.0) mg/dL Ur Leukocyte Esterase Small H (Negative) Urine RBC 3 (0-5) /hpf Urine WBC 1 (0-5) /hpf Urine Mucus Rare H (None) /hpf Disposition Clinical Impression: Back pain Disposition: HOME SELF-CARE Condition: Good Instructions (If sedation given, give patient instructions): Acute Low Back Pain (ED) Additional Instructions: Please return to the Emergency Department if symptoms worsen or any other concerns. Please follow-up with your primary care provider. Prescriptions: Cyclobenzaprine [Flexeril] 10 mg PO TID PRN #15 tab PRN Reason: Muscle Spasm Ibuprofen [Motrin] 600 mg PO Q8HR PRN #30 tab PRN Reason: Pain Acetaminophen Tab [Tylenol] 500 mg PO Q6H #60 tablet Is patient prescribed a controlled substance at d/c from ED?: No Referrals: Jose Oates MD [Primary Care Provider] - 1-2 days Time of Disposition: 19:33
[2024-03-05] MEDS: KETOROLAC 15 MG/ML 1 ML VIAL IVP STA (17:35)
[2024-03-05] MEDS: CYCLOBENZAPRINE 10 MG TAB PO STA (17:35)
--- NOTE | 2024-03-05 18:03 | XR ---
EXAMINATION TYPE: XR lumbar spine 2 or 3V DATE OF EXAM: 03/05/2024 CLINICAL HISTORY: pain TECHNIQUE: Three views of the lumbar spine are submitted. COMPARISON: None. FINDINGS: There are 5 lumbar type vertebral bodies identified. The lumbar spine shows satisfactory alignment w ithout evidence of acute fracture or dislocation. Vertebral body heights are within normal limits. Mo derate facet joint arthropathy. Mild degenerative narrowing L5-S1. The overlying soft tissue appears unremarkable. IMPRESSION: No acute fracture or dislocation is seen in the lumbar spine. ICD 10 NO FRACTURE, INITIAL EVALUATION
[2024-03-05] MEDS: HYDROmorphone 0.5 MG/0.5 ML SYRINGE IM STA (18:28)
[2024-03-05] MEDS: ACETAMINOPHEN TAB 500 MG TAB PO STA (18:29)
[2024-03-05 19:04] LABS: Appearance,Urine Clear (Clear); Bilirubin,Urine Negative (Negative); Blood,Urine Negative (Negative); Color,Urine Light Yellow; Glucose,Urine (UA) Negative (Negative); Ketones,Urine Negative (Negative); Leukocyte Esterase,Urine Small (Negative); Mucus,Urine Rare /hpf; Nitrite,Urine Negative (Negative); PH, Urine 6.5 (5.0-8.0); Protein,Urine Negative (Negative); RBC,Urine 3 /hpf (0-5); Specific Gravity,Urine 1.012 (1.001-1.035); Urobilinogen,Urine <2.0 mg/dL (<2.0); WBC,Urine 1 /hpf (0-5)
[2024-03-05 20:06] VITALS: BP 136/61; PULSE 61; TEMP 98.3
== END 2024-03-05 20:06 | disposition home or self-care (01) ==
LOC: EC 16:57
DX: M54.50 Low back pain, unspecified (principal); F17.200 Nicotine dependence, unspecified, uncomplicated
CPT/HCPCS: 81001; 72100; 99285; 96374; 96372; J1885; J1170